=== PATIENT | female | born 2005 | race Caucasian/White ===

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

== ENCOUNTER 2025-07-15 13:32 | Emergency (ER) | payer BC, SELFPAY ==
--- NOTE | ~2025-07-15 | XR_ITS ---
XR ankle LT min 3V 07/15/2025 14:15 INDICATION: Left ankle pain PROCEDURE: 4 views left ankle COMPARISON: No prior studies for comparison. FINDINGS: Fracture, dislocation or subluxation is not identified. The soft tissues appear within normal limits. No foreign bodies are identified. IMPRESSION: 1: NO ACUTE BONE OR JOINT ABNORMALITY IDENTIFIED. Reviewed, dictated and finalized at location O.
[2025-07-15 13:45] VITALS: BP 111/79; PULSE 94; RESP 16; TEMP 36.7; O2SAT 100
--- NOTE | 2025-07-15 13:59 | ED_ITS ---
HPI - Extremity Injury (Lower) General Chief Complaint: Extremity Injury, Lower Stated Complaint: L FOOT/ANKLE INJURY Time Seen by Provider: 07/15/25 13:59 Source: patient Mode of arrival: ambulatory Limitations: no limitations History of Present Illness HPI Narrative: 20 yo F presents with pain to L ankle. Pt states she slipped on stairs at school and fell. States left ankle rolled. Ambulatory with steady gait. all systems reviewed and Negative except as noted above. Related Data Home Medications ?Medication ?Instructions ?Recorded ?Confirmed ?Last Taken ?Type No Home Medications 07/13/24 07/15/25 U nknown History Allergies Allergy/AdvReac Type Severity Reaction Status Date / Time Penicillins Allergy Unknown Verified 07/15/25 13:43 PMFSH Comments At time of signature, agree with nursing past medical, surgical, social and fam nenita history. There is no relevant family history pertinent to the presenting complaint. Exam Narrative: GENERAL: This is a well-nourished, well-developed patient, in no apparent distress. HEAD: normocephalic, atraumatic. EYES: PERRL. Sclera clear/white. Vision is grossly intact. EARS: External ears normal NOSE: External nose normal NECK: Neck supple, non-tender without lymphadenopathy, masses or thyromegaly. CARDIOVASCULAR: Regular rate and rhythm without murmurs, gallops, or rubs. RESPIRATORY: Clear to auscultation. Breath sounds equal bilaterally. No wheezes, rales, or rhonchi. SKIN: warm, Dry, intact with no suspicious lesions or rash, good texture and turgor. NEURO: awake, alert, and oriented to person, place and time. There were no obvious focal neurologic abnormalities. EXTREMITIES: no significant swelling noted to left ankle. Generalized tenderness to lateral aspect. No deformity noted. Range of motion distal neurovascularly intact. Course Course Level of Care: Express Care Visit Vital Signs Vital signs: Vital Signs Temperature 36.7 C 07/15/25 13:45 Pulse Rate 94 07/15/25 13:45 Respiratory Rate 16 07/15/25 13:45 Blood Pressure 111/79 07/15/25 13:45 Pulse Oximetry 100 07/15/25 13:45 Temperature 36.7 C 07/15/25 13:45 Pulse Rate 94 07/15/25 13:45 Respiratory Rate 16 07/15/25 13:45 Blood Pressure 111/79 07/15/25 13:45 Pulse Oximetry 100 07/15/25 13:45 At time of signature, agree with nursing past medical, surgical, social and family history. There is no relevant family history pertinent to the presenting complaint. MDM - Extremity Injury (Lower) Medical Records Medical records narrative: X-ray of left ankle negative for fracture. Plan discussed results with patient. Patient placed in Vick wrap. Recommend rice. Recommend follow-up with primary care physician as needed. Imaging Data My impression: agree with radiologist Radiologist's impression: XR ankle LT min 3V 07/15/2025 14:15 INDICATION: Left ankle pain PROCEDURE: 4 views left ankle COMPARISON: No prior studies for comparison. FINDINGS: Fracture, dislocation or subluxation is not identified. The soft tissues appear within normal limits. No foreign bodies are identified. IMPRESSION: 1: NO ACUTE BONE OR JOINT ABNORMALITY IDENTIFIED. Discharge Plan Discharge Clinical Impression: Mild sprain of left ankle Patient Disposition: Home Condition: Stable Instructions: Ankle Sprain in Children (ED) Additional Instructions: The x-ray of your left ankle was negative for fracture. Take ibuprofen or Tylenol every 6-8 hours as needed for pain. Wear a supportive shoe such as a tennis shoe. No flip-flops or sandals. Elevate when at rest. Apply ice as needed for pain. Avoid activities that increase pain such as running and jumping. See your doctor if pain is not improving. Patient Language: [place] Prescriptions: No Action No Home Medications Follow-up/Referrals: Natividad,Dyana [Other] Stand Alone Forms: Work/School Release IP Time of Disposition: 14:30
== END 2025-07-15 14:44 | disposition home or self-care (01) ==
PROVIDERS: Emergency Provider Nurse Practitioner Family
DX: S93.402A Sprain of unspecified ligament of left ankle, initial encounter (principal); W10.9XXA Fall (on) (from) unspecified stairs and steps, initial encounter; R73.03 Prediabetes; K76.0 Fatty (change of) liver, not elsewhere classified
CPT/HCPCS: 73610; 99213; G0463